=== PATIENT | female | born 1990 | race African-American/Black ===

== ENCOUNTER 2022-10-27 20:40 | Emergency (ER) | payer OTHER ==
[~2022-10-27] VITALS: Ht 172.7 cm; Wt 82.6 kg
[2022-10-28] MEDS ORDERED: TETANUS-DIPTH-ACEL PERTUSSIS 0.5ML SYR Tdap IM ONE (01:15)
[2022-10-28] MEDS ORDERED: IBUPROFEN 800 MG TAB PO ONE (01:15)
[2022-10-28] MEDS ORDERED: CEPH500C PO (01:18)
[2022-10-28] MEDS ORDERED: MUPI2OIN2 EX (01:18)
[2022-10-28] MEDS ORDERED: IBU600T PO (01:18)
[2022-10-28 02:15] VITALS: BP 123/74
== END 2022-10-28 02:15 | disposition home or self-care (01) ==
LOC: ER 20:45
DX: S61.217A Laceration without foreign body of left little finger without damage to nail, initial encounter (principal); Z79.1 Long term (current) use of non-steroidal anti-inflammatories (NSAID); Z79.899 Other long term (current) drug therapy; W26.8XXA Contact with other sharp object(s), not elsewhere classified, initial encounter; Y93.89 Activity, other specified; Y92.89 Other specified places as the place of occurrence of the external cause; Y99.8 Other external cause status
CPT/HCPCS: 12002; 90471; 90715